=== PATIENT | female | born 1950 | race Caucasian/White ===

== ENCOUNTER → 2025-01-25 | Outpatient (CLI) | payer MEDICARE, OTHER ==
[2025-01-25 18:49] LABS: Basophils # (A) 0.03 X 10*3/uL (0.00-0.10); Basophils % (A) 0.4 %; Eosinophils # (A) 0.29 X 10*3/uL (0.04-0.35); Eosinophils % (A) 3.9 %; HCT 39.5 % (37.2-46.3); HGB 12.2 g/dL (12.0-15.0); Lymphocytes # (A) 2.78 X 10*3/uL (0.90-5.00); Lymphocytes % (A) 37.6 %; MCH 30.4 pg (27.0-32.0); MCHC 30.9 g/dL (32.0-37.0); MCV 98.5 FL (80.0-97.0); Mean Platelet Volume 10.4 FL (9.5-12.2); Monocytes # (A) 0.68 X 10*3/uL (0.20-1.00); Monocytes % (A) 9.2 %; NRBC Per 100 WBC 0 X 10*3/uL (0.00-0.01); Neutrophils # (A) 3.59 X 10*3/uL (1.80-7.70); Neutrophils % (A) 48.6 %; Platelet Count 317 X 10*3/uL (140-440); RBC 4.01 X 10*6/uL (4.10-5.20); RDW 15.2 % (11.5-14.5); WBC 7.39 X 10*3/uL (4.50-10.00)
[2025-01-25 19:18] LABS: Blood Urea Nitrogen 24.3 mg/dL (9.0-27.0); Carbon Dioxide 29.7 mmol/L (21.6-31.8); Chloride 99 mmol/L (96-109); Sodium 142 mmol/L (135-145)
== END | disposition home or self-care (01) ==
LOC: LABPAT 15:08
PROVIDERS: ATTEND Internal Medicine Interventional Cardiology
DX: Z01.812 Encounter for preprocedural laboratory examination (principal); I25.10 Atherosclerotic heart disease of native coronary artery without angina pectoris
CPT/HCPCS: 80051; 82565; 84520; 85025

== ENCOUNTER 2025-01-29 05:59 | Day surgery (SDC) | payer MEDICARE, OTHER ==
[2025-01-27 08:33] VITALS: BMI 40.1
[2025-01-29] MEDS ORDERED: NITROGLYCERIN SL TABS 0.4 MG TAB SUBLINGUAL PRN (06:01)
[2025-01-29] MEDS ORDERED: ALPRAZolam 0.5 MG TAB PO PRN (06:01)
[2025-01-29] MEDS ORDERED: ALPRAZolam 0.25 MG TAB PO PRN (06:01)
[2025-01-29] MEDS: SODIUM CHLORIDE 0.9% 1,000 ML in EMPTY BAG 1 BAG IV SCH (06:15)
[2025-01-29] MEDS: IV FLUID CONTINUATION 1,000 ML IV ONE (06:15)
[2025-01-29] MEDS: ASPIRIN 325 MG TAB PO STA (06:23)
[2025-01-29] MEDS: MIDAZOLAM 2 MG/2 ML VIAL IVP ONE (08:12)
[2025-01-29] MEDS: LIDOCAINE 1% INJ 10MG/ML (20 ML MDV) SQ ONE (08:12)
[2025-01-29] MEDS: fentaNYL (PF) 50 MCG/1 ML VIAL IVP ONE (08:19)
[2025-01-29] MEDS: HEPARIN SODIUM,PORCINE 10,000 UNIT in SODIUM CHLORIDE 0.9% 1,000 ML IRRIGATION PRN (08:30)
[2025-01-29] MEDS: HEPARIN SODIUM,PORCINE (1 ML) 2,500 UNIT in SODIUM CHLORIDE 0.9% 250 ML IRRIGATION PRN (08:30)
[2025-01-29] MEDS: IOPAMIDOL-370 100ML BTL INJ ONE ×2 (08:38→09:07)
[2025-01-29] MEDS: HEPARIN SODIUM 1,000 UN/ML (10ML VL) IVP ONE (08:50)
[2025-01-29] MEDS: TICAGRELOR 90 MG TAB PO ONE (08:55)
--- NOTE | 2025-01-29 13:11 | P.PCN ---
Date of Procedure: 01/29/25 Operative Findings: CARDIAC CATHETERIZATION PERFORMING PHYSICIAN: Reg Osborn MD, RPVI PROCEDURE PERFORMED: 1. Selective right and left coronary angiogram 2. Left heart catheterization 3. Ultrasound-guided access of the right common femoral artery INDICATION: Symptomatic 74-year-old female patient with known CAD and symptoms of chest discomfort concerning for angina COMPLICATION: None APPROACH: Right common femoral artery LEVEL OF SEDATION: Moderate with sedation in length of 40 minutes PROCEDURE DESCRIPTION: After obtaining an informed consent, the patient was brought to cardiac cath laboratory technician. Local anesthesia was performed using lidocaine subcutaneously. The right common femoral artery was cannulated using Seldinger technique, the guidewire passed easily, following that we advanced a 6 Icelandic sheath dilator assembly, the wire and dilator were removed and sheath was flushed. Selective left coronary angiogram was performed using JL 4 catheters. Selective right coronary angiogram was performed using multiple catheter and finally I was able to engaged using JR 3.5 catheter. Left heart catheterization was performed using the JR4 catheter The procedure was completed there was no complication. SELECTIVE CORONARY ANGIOGRAM: The right coronary artery: Large caliber vessel with critical disease involving the proximal to midportion Left main: Has mild disease The left circumflex: Large caliber vessel nondominant vessel with no evidence of high-grade stenosis The left anterior descending artery: Large caliber vessel with no evidence of high-grade stenosis as a HEMODYNAMICS: The LVEDP was 12 mmHg with no significant gradient across aortic valve CONCLUSION: 1. Critical disease involving the posterior takeoff of the RCA 2. Mild disease involving the left coronary system 3. Normal left-sided filling pressure POSTPROCEDURE MANAGEMENT: Attempting doing PCI from right radial approach
[2025-01-29] MEDS ORDERED: ALBUTEROL NEBULIZED 2.5 MG/3 ML INHALATION PRN (14:19)
[2025-01-29] MEDS: SODIUM CHLORIDE 0.9% 1,000 ML IV SCH (16:31)
[2025-01-29 19:57] VITALS: BP 110/69; PULSE 63; RESP 20; TEMP 98
[2025-01-29] MEDS ORDERED: ATORVASTATIN 20 MG TAB PO SCH (21:00)
[2025-01-29] MEDS ORDERED: ASPIRIN 81 MG PO SCH (21:00)
[2025-01-30] MEDS ORDERED: LEVOTHYROXINE 100 MCG TAB PO SCH (06:30)
[2025-01-30] MEDS ORDERED: CHOLECALCIFEROL 25 MCG (1000 IU) TABLET PO SCH (09:00)
[2025-01-30] MEDS ORDERED: FUROSEMIDE 20 MG TAB PO SCH (09:00)
[2025-01-30] MEDS ORDERED: PANTOPRAZOLE 40 MG TABLET PO SCH (09:00)
[2025-01-30] MEDS ORDERED: ISOSORBIDE MONONITRATE ER 30 MG TAB.ER.24H PO SCH (09:00)
[2025-01-30] MEDS ORDERED: CHLORTHALIDONE 25 MG TAB PO SCH (09:00)
[2025-01-30] MEDS ORDERED: amLODIPine 5 MG TAB PO SCH (09:00)
== END 2025-01-29 20:22 | disposition home or self-care (01) ==
LOC: CATHCVL 05:59 → 6NMEDSUR 09:11 → CATHCVL 20:22
PROVIDERS: ATTEND Internal Medicine Interventional Cardiology
DX: I25.110 Atherosclerotic heart disease of native coronary artery with unstable angina pectoris (principal); I10 Essential (primary) hypertension; E78.5 Hyperlipidemia, unspecified; I08.0 Rheumatic disorders of both mitral and aortic valves; I65.23 Occlusion and stenosis of bilateral carotid arteries; F17.210 Nicotine dependence, cigarettes, uncomplicated; Z79.82 Long term (current) use of aspirin; Z79.890 Hormone replacement therapy; Z79.899 Other long term (current) drug therapy
CPT/HCPCS: 93458; C1887 ×2; C1769 ×3; C1894 ×2; J2250; J1644 ×3; J2003; Q9967; J3010

== ENCOUNTER 2025-02-04 10:03 | Day surgery (SDC) | payer MEDICARE, OTHER ==
[~2025-02-04 10:03] MED LIST: ALPRAZolam 0.5 MG TAB PO PRN; HEPARIN SODIUM,PORCINE (1 ML) 2,500 UNIT in SODIUM CHLORIDE 0.9% 250 ML IRRIGATION PRN; HEPARIN SODIUM,PORCINE 10,000 UNIT in SODIUM CHLORIDE 0.9% 1,000 ML IRRIGATION PRN; NITROGLYCERIN SL TABS 0.4 MG TAB SUBLINGUAL PRN
[2025-02-04] MEDS: SODIUM CHLORIDE 0.9% 1,000 ML in EMPTY BAG 1 BAG IV ONE (10:28)
[2025-02-04] MEDS: IV FLUID CONTINUATION 1,000 ML IV ONE (10:28)
[2025-02-04] MEDS: ALPRAZolam 0.25 MG TAB PO PRN (10:34)
[2025-02-04] MEDS: ASPIRIN 325 MG TAB PO ONE (10:50)
[2025-02-04 11:28] LABS: African American GFR (CKD) 72 (>60 ml/min/1.73 sqM); Anion Gap 8 mmol/L; Blood Urea Nitrogen 20 mg/dL (7-17); Calcium 9.8 mg/dL (8.4-10.2); Carbon Dioxide 32 mmol/L (22-30); Chloride 98 mmol/L (98-107); Glucose 108 mg/dL (74-99); Non-African American GFR(CKD) 63 (>60 ml/min/1.73 sqM); Potassium 3.9 mmol/L (3.5-5.1); Sodium 138 mmol/L (137-145)
[2025-02-04 11:41] LABS: Basophils # (A) 0.04 10*3/uL (0.00-0.10); Basophils % (A) 0.6 %; Eosinophils # (A) 0.24 10*3/uL (0.04-0.35); Eosinophils % (A) 3.6 %; HCT 37.9 % (37.2-46.3); HGB 12.2 g/dL (12.0-15.0); Lymphocytes # (A) 1.81 10*3/uL (0.90-5.00); Lymphocytes % (A) 26.9 %; MCH 30.8 pg (27.0-32.0); MCHC 32.2 g/dL (32.0-37.0); MCV 95.7 fL (80.0-97.0); Mean Platelet Volume 10.6 fL (9.5-12.2); Monocytes # (A) 0.72 10*3/uL (0.20-1.00); Monocytes % (A) 10.7 %; Neutrophils % (A) 57.9 %; Platelet Count 298 10*3/uL (140-440); RBC 3.96 10*6/uL (4.10-5.20); RDW 14.8 % (11.5-14.5); WBC 6.73 10*3/uL (4.50-10.00)
[2025-02-04] MEDS: MIDAZOLAM 2 MG/2 ML VIAL IVP ONE ×2 (12:49→12:50)
[2025-02-04] MEDS: LIDOCAINE 1% INJ 10MG/ML (20 ML MDV) SQ ONE (12:54)
[2025-02-04] MEDS: fentaNYL (PF) 50 MCG/ML 2 ML AMP IVP ONE (12:55)
[2025-02-04] MEDS: TICAGRELOR 90 MG TAB PO ONE (13:00)
[2025-02-04] MEDS: HEPARIN SODIUM 1,000 UN/ML (10ML VL) IV ONE ×3 (13:01→14:05)
[2025-02-04] MEDS: MORPHINE SULFATE 4 MG/ML SYRINGE IVP ONE (13:17)
[2025-02-04] MEDS: ATROPINE SULFATE 0.1 MG/ML 10ML SYRINGE IVP ONE (13:26)
[2025-02-04] MEDS: IOPAMIDOL-370 100ML BTL INJ ONE ×2 (13:51→14:05)
[2025-02-04] MEDS: NITROGLYCERIN 1000MCG/10ML SYRINGE INTRAARTER ONE (13:55)
[2025-02-04] MEDS ORDERED: RX INFO: IV CONTRAST WAS GIVEN 1 EACH MISC MISCELLANE PRN (14:04)
[2025-02-04] MEDS ORDERED: ZOLPIDEM 5 MG TAB PO PRN (14:04)
[2025-02-04] MEDS ORDERED: MAG HYDROX/AL HYDROX/SIMETH 30 ML CUP PO PRN (14:04)
[2025-02-04] MEDS ORDERED: ATROPINE SULFATE 0.1 MG/ML 10ML SYRINGE IV PRN (14:04)
[2025-02-04] MEDS: HEPARIN SODIUM,PORCINE 10,000 UNIT in SODIUM CHLORIDE 0.9% 1,000 ML IRRIGATION ONE (14:06)
[2025-02-04] MEDS: HEPARIN SODIUM,PORCINE (1 ML) 2,500 UNIT in SODIUM CHLORIDE 0.9% 250 ML IRRIGATION ONE (14:07)
[2025-02-04] MEDS: SODIUM CHLORIDE 0.9% 1,000 ML in EMPTY BAG 1 BAG IV SCH (14:30)
[2025-02-04] MEDS: ATORVASTATIN 80 MG TAB PO SCH (20:07)
[2025-02-04] MEDS: ISOSORBIDE MONONITRATE ER 30 MG TAB.ER.24H PO SCH (20:11)
[2025-02-04] MEDS: TICAGRELOR 90 MG TAB PO SCH (20:11)
--- NOTE | 2025-02-04 22:26 | P.PCN ---
Date of Procedure: 02/04/25 Operative Findings: Percutaneous coronary intervention Performing physician Reg Osborn MD Procedure performed Successful stenting of the mid and proximal RCA using 3.5 x 48 and 4.0 x 23 mm Xience DWIGHT with an excellent angiographic results and reduction of stenosis from 99% to 0% Adjunctive use of IVUS and lithotripsy balloon Ultrasound-guided access of the left common femoral artery and left common femoral artery angiogram Indication Symptomatic 74-year-old female patient with critical disease involving the RCA documented on recent heart catheterization last week Approach Left common femoral artery Complications None Level of sedation Moderate to sedation length of 60 minutes Procedure description After obtaining informed consent the patient was brought to the cardiac Group Practice Pediatrician. The left common femoral artery was cannulated using micropuncture technique under ultrasound guidance the micropuncture wire passed easily then I placed a 6 Icelandic 11 cm sheath at the left common femoral artery. Please note that attempting engaging the RCA from right common femoral artery approach was unsuccessful last time. Also the patient does not have any right radial pulse. She is overweight/obese to perform heart catheterization from left radial approach. After that I was able to engage the RCA using JR 3.5 guiding catheter. I did right coronary angiogram which revealed critical disease involving the RCA in the midportion and proximal portion. I did start anticoagulation using heparin with continuous ACT monitoring and also the patient was loaded with Brilinta at 180 mg. Subsequently I wired the RCA using 2 wires including a whisper wire and a run-through wire to obtain better ancho ring of the RCA. Attempting advancing the IVUS was successful only to the proximal RCA which showed a diameter around 4 mm. Predilatation was performed using 3 mm score flex balloon. After that I did predilated using 3.5 mm NC balloon for the proximal RCA. The NC balloon was not open fully and for that reason I did use a balloon angioplasty using 4 mm lithotripsy balloon. After that I was able to advance 3.5 x 48 mm stent which was positioned under fluoroscopy guidance and deployed under 12 caio and subsequently connected with 4.0 x 23 mm another Xience DWIGHT. Postdilatation was performed using 4 mm NC balloon which I was able to do with the area of overlap between the 2 stents using the 4 mm NC balloon and then flared the ostium using the 4.0 mm NC balloon as well with final angiogram showing excellent angiographic results with easy to engage the RCA. The procedure was completed with no complication Postprocedure management Dual antiplatelet therapy using aspirin and Brilinta for at least 6 months Aggressive cholesterol control Risk factors modification Follow-up with the patient
[2025-02-05] MEDS: LEVOTHYROXINE 100 MCG TAB PO SCH (05:10)
[2025-02-05 07:12] LABS: African American GFR (CKD) 66 (>60 ml/min/1.73 sqM); Anion Gap 4 mmol/L; Blood Urea Nitrogen 19 mg/dL (7-17); Calcium 8.5 mg/dL (8.4-10.2); Carbon Dioxide 33 mmol/L (22-30); Chloride 98 mmol/L (98-107); Glucose 104 mg/dL (74-99); Non-African American GFR(CKD) 57 (>60 ml/min/1.73 sqM); Potassium 3.4 mmol/L (3.5-5.1); Sodium 135 mmol/L (137-145)
[2025-02-05 07:17] LABS: Basophils # (A) 0.02 10*3/uL (0.00-0.10); Basophils % (A) 0.3 %; Eosinophils # (A) 0.17 10*3/uL (0.04-0.35); Eosinophils % (A) 2.4 %; HGB 10.2 g/dL (12.0-15.0); Lymphocytes # (A) 1.56 10*3/uL (0.90-5.00); Lymphocytes % (A) 21.8 %; MCH 31.3 pg (27.0-32.0); MCHC 31.9 g/dL (32.0-37.0); MCV 98.2 fL (80.0-97.0); Mean Platelet Volume 10.7 fL (9.5-12.2); Monocytes # (A) 0.68 10*3/uL (0.20-1.00); Monocytes % (A) 9.5 %; Neutrophils % (A) 65.6 %; Platelet Count 275 10*3/uL (140-440); RBC 3.26 10*6/uL (4.10-5.20); RDW 15.1 % (11.5-14.5); WBC 7.16 10*3/uL (4.50-10.00)
[2025-02-05] MEDS: amLODIPine 5 MG TAB PO SCH (09:24)
[2025-02-05] MEDS: CHOLECALCIFEROL 25 MCG (1000 IU) TABLET PO SCH (09:24)
[2025-02-05] MEDS: ASPIRIN 81 MG PO SCH (09:24)
[2025-02-05] MEDS: CHLORTHALIDONE 25 MG TAB PO SCH (09:24)
[2025-02-05] MEDS: PANTOPRAZOLE 40 MG TABLET PO SCH (09:25)
[2025-02-05] MEDS: FUROSEMIDE 20 MG TAB PO SCH (09:25)
[2025-02-05] MEDS ORDERED: Potassium Replacement Protocol 1 EACH MISC MISCELLANE PRN (09:36)
[2025-02-05 09:52] VITALS: BP 107/67; PULSE 74; RESP 16; TEMP 98.6
[2025-02-05] MEDS: POTASSIUM CHLORIDE ER 20 MEQ TAB.ER PO SCH (10:17)
--- NOTE | 2025-02-05 12:08 | DS ---
DISCHARGE SUMMARY BRIEF HISTORY: The patient is a pleasant 74-year-old female patient, who underwent yesterday successful PCI of the RCA with good angiographic results. She was seen and evaluated this morning. She is asymptomatic and hemodynamically stable with borderline blood pressure and I am going to stop the isosorbide mononitrate as well as amlodipine and also low potassium, which will be replaced. The patient will be discharged home on dual anti-platelet therapy along with a statin and I will follow up with the patient next week in the office. KENNETH / GENAN: [id number] /
[2025-02-05 14:08] VITALS: BMI 40.7
== END 2025-02-05 12:26 | disposition home or self-care (01) ==
LOC: CATHCVL 10:03 → 3SCARD 13:56 → CATHCVL 02-05 12:26
PROVIDERS: ATTEND Internal Medicine Interventional Cardiology
DX: I25.10 Atherosclerotic heart disease of native coronary artery without angina pectoris (principal); I65.23 Occlusion and stenosis of bilateral carotid arteries; I38 Endocarditis, valve unspecified; I10 Essential (primary) hypertension; E78.5 Hyperlipidemia, unspecified; Z72.0 Tobacco use; Z95.5 Presence of coronary angioplasty implant and graft; Z79.82 Long term (current) use of aspirin; Z79.890 Hormone replacement therapy; Z79.899 Other long term (current) drug therapy
CPT/HCPCS: 92978; 92972; 80048 ×2; 85025 ×2; 99152; 99153; C9600; C1769 ×3; C1887; C1894 ×2; C1753; C1725 ×4; C1761; J2250; J2270; J1644 ×3; J2003; J0461; J3010; Q9967; J2305